=== PATIENT | male | born 2000 | race African-American/Black ===

== ENCOUNTER 2019-08-09 18:08 | Emergency (ER) | payer OTHER, SELFPAY ==
[2019-08-09 18:21] VITALS: BP 133/70; PULSE 65; RESP 16; TEMP 37.3; O2SAT 100
--- NOTE | 2019-08-09 18:22 | ED.MALEGU ---
HPI - Male Genitourinary General Chief complaint: Urogenital-Male Stated complaint: Possible UTI Time Seen by Provider: 08/09/19 18:22 Source: patient and RN notes reviewed History of Present Illness HPI Narrative: Patient is a 18-year-old male that presents the urgent care with complaints of burning with urination for 2 days. Patient states that he has been sitting in a car for 6 hours for several days driving. Patient also reports of only drinking soda. Patient denies of any fever, nausea, vomiting, abdominal pain, low back pain. Patient also reports of a clear discharge without odor. Patient states that his partner does not know if she may carry an STD . Patient states he has had chlamydia in the past and this does not feel like however he is unsure why he is having the discharge and pain with urination. Patient denies of any blood in the urine. No other acute complaints. No acute distress noted. Patient read the plan of care. Related Data Allergies Allergy/AdvReac Type Severity Reaction Status Date / Time No Known Allergies Allergy Verified 08/09/19 18:31 Review of Systems Review of Systems: Narrative: CONSTITUTIONAL: Denies fever, chills, or sweats. EYES: Denies visual changes, redness, or discharge. ENT: Denies rhinorrhea, congestion, sore throat, or otalgia. CARDIOVASCULAR: Denies chest pain, palpitations, or edema. RESPIRATORY: Denies cough or dyspnea. GASTROINTESTINAL: Denies abdominal pain, nausea, vomiting, or diarrhea. GENITOURINARY: Reports of dysuria and clear penile discharge SKIN: Denies rash or itching. MUSCULOSKELETAL: Denies back pain, joint pain, or myalgia. NEUROLOGIC: Denies headache, numbness, or weakness. All other systems reviewed are negative, except as documented in HPI. [facility] Social History Social History Gender identity (if verbalized by the patient): Male Comments At the time of my signature, I reviewed and agree with the nursing past medical, surgical, social, and family history. There is no relevant family history pertinent to the patient complaint. Exam Narrative: Exam Narrative: GENERAL: This is a well-nourished, well-developed patient, in no apparent distress. HEAD: normocephalic, atraumatic. EYES: PERRL. Sclera clear/white. Vision is grossly intact. EARS: External ears normal NOSE: External nose normal with no obvious nasal discharge THROAT: Mucous membranes moist NECK: Neck supple CARDIOVASCULAR: Regular rate and rhythm without murmurs, gallops, or rubs. RESPIRATORY: Clear to auscultation. Breath sounds equal bilaterally. No wheezes, rales, or rhonchi. GASTROINTESTINAL: Abdomen soft, non-tender, nondistended. SKIN: warm, intact with no suspicious lesions or rash, good texture and turgor. NEURO: awake, alert, and oriented to person, place and time. There were no obvious focal neurologic abnormalities. EXTREMITIES: No clubbing, cyanosis, or edema. BACK: Negative bilateral CVA tenderness Course Vital Signs Vital signs: Vital Signs Temperature 99.2 F 08/09/19 18:21 Pulse Rate 65 08/09/19 18:21 Respiratory Rate 16 08/09/19 18:21 Blood Pressure 133/70 08/09/19 18:21 Pulse Oximetry 100 08/09/19 18:21 Temperature 99.2 F 08/09/19 18:21 Pulse Rate 65 08/09/19 18:21 Respiratory Rate 16 08/09/19 18:21 Blood Pressure 133/70 08/09/19 18:21 Pulse Oximetry 100 08/09/19 18:21 Reviewed MDM - Male Genitourinary MDM Narrative Medical decision making narrative: Reviewed lab results with the patient. He is aware that urine analysis was not indicative of a urinary tract infection. Will treat patient for chlamydia per his request and due to symptoms. We will call him within 3 days to 1 week with STD results. If you do not hear within 1 week you may call the facility. If you develop any increase in pain with urination associated with abdominal pain, nausea, vomiting, fever?go to the emergency room. Abstain from sex for 14 days if the test is positiv
[2019-08-09] MEDS: AZITHROMYCIN 250 MG TABLET 1000 MG PO (18:47)
== END 2019-08-09 19:09 | disposition home or self-care (01) ==
PROVIDERS: Emergency Provider Nurse Practitioner Family; PCP Pediatrics
DX: R30.0 Dysuria (principal); Z72.51 High risk heterosexual behavior
CPT/HCPCS: 81003; 87491; 87591; 99203; A9270; G0463

== ENCOUNTER 2019-08-13 12:09 | Emergency (ER) | payer OTHER, SELFPAY ==
[2019-08-13 12:20] VITALS: BP 138/78; PULSE 60; RESP 16; TEMP 36.8; O2SAT 99
--- NOTE | 2019-08-13 12:35 | ED.GENADULT ---
HPI - General Adult General Chief complaint: Urogenital-Male Stated complaint: Std Time Seen by Provider: 08/13/19 12:36 Source: patient and RN notes reviewed Mode of arrival: ambulatory Limitations: no limitations History of Present Illness HPI narrative: 18-year-old -[place] male presents with complaints of needing to be treated for his previous test results. Luis was recently at the Urgent Care and tested for STIs and treated for Chlamydia only. Luis says his sexual partner called him today and said she was positive for Chlamydia and Gonorrhea he then contacted the facility. Denies further dysuria (burning, urgency and frequency). Denies fever or chills. Denies diarrhea, nausea, vomiting, and abdominal pain. Tolerating po intake well. No significant penile pain. No penile discharge. Concern for STIs due to history of recently had unprotected intercourse and testing positive for GC. Denies unprotected intercourse with multiple partners. No flank pain. No exacerbating factors. Denies hematuria or unusual penile bleeding. Tolerating liquids well. Remains active. Some parts of this dictation were generated by voice recognition software and may contain typographical and/or grammatical inaccuracies. Related Data Home Medications Medication Instructions Recorded Confirmed No Home Medications 08/13/19 08/13/19 Allergies Allergy/AdvReac Type Severity Reaction Status Date / Time No Known Allergies Allergy Verified 08/13/19 12:24 Review of Systems Review of Systems: Narrative: CONSTITUTIONAL: Denies fever, chills, sweats. EYES: Denies visual changes, redness, discharge. ENT: Denies rhinorrhea, congestion, sore throat, otalgia. CARDIOVASCULAR: Denies chest pain, palpitations, edema. RESPIRATORY: Denies dyspnea, wheezing, cough GASTROINTESTINAL: Denies abdominal pain, nausea, vomiting, diarrhea. GENITOURINARY: Denies dysuria, hematuria, genital discharge and itching. Complains of positive GC result and needing treatment. SKIN: Denies rash or itching. MUSCULOSKELETAL: Denies acute back pain, joint pain, or myalgia. NEUROLOGIC: Denies numbness or focal weakness. PSYCHIATRIC: Denies anxiety or depression. All systems reviewed & are unremarkable except as noted in HPI and below. [facility] Past Medical History Medical History (Updated 08/14/19 @ 00:00 by Gustavo Awad) No significant past medical history Surgical History Surgical History (Updated 08/13/19 @ 12:49 by RONALD Braden) No significant past surgical history Family History Family History (Updated 08/13/19 @ 12:49 by RONALD Braden) Mother Asthma Seizures Social History Social History (Updated 08/13/19 @ 12:50 by RONALD Braden) Smoking status: Never smoker Tobacco type: cigarettes Second hand tobacco smoke exposure: No Alcohol intake: former Alcohol use details: Rarely Substance use: current Substance use type: marijuana Living arrangements: with family Occupation/Education: unemployed Gender identity (if verbalized by the patient): Male Comments At time of signature, agree with nurse past medical, surgical, social, and family history. There is no relevant family history pertinent to the presenting complaint. Exam Narrative: Exam Narrative: GENERAL: This is a well-nourished, well-developed patient, in no apparent distress. Talks in full sentences and ambulates with steady gait without dyspnea. HEAD: normocephalic, atraumatic. EYES: PERRL. Sclera clear/white. Vision is grossly intact. THROAT: Mucous membranes moist, posterior pharynx clear. No erythema or drainage. NECK: Neck supple, non-tender without lymphadenopathy, masses or thyromegaly. CARDIOVASCULAR: Regular rate and rhythm without murmurs, gallops, or rubs. RESPIRATORY: Clear to auscultation. Breath sounds equal bilaterally. No wheezes, rales, or rhonchi. GASTROINTESTINAL: Abdomen soft, non-tender, nondistended.
[2019-08-13] MEDS: cefTRIAXone 250 MG VIAL IM (12:49)
[2019-08-13] MEDS: LIDOCAINE HCL 1% LOCAL INJ 20 ML VIAL INFILTRATE (12:49)
== END 2019-08-13 13:09 | disposition home or self-care (01) ==
PROVIDERS: Emergency Provider Nurse Practitioner Family
DX: A64 Unspecified sexually transmitted disease (principal)
CPT/HCPCS: 96372; 99213; G0463; J0696

== ENCOUNTER 2020-03-18 09:16 | Emergency (ER) | payer OTHER, SELFPAY ==
[2020-03-18 09:28] VITALS: BP 126/66; PULSE 65; RESP 16; TEMP 37.2; O2SAT 99
--- NOTE | 2020-03-18 09:30 | ED.GENADULT ---
HPI - General Adult General Chief complaint: Urogenital-Male Stated complaint: possible uti Time Seen by Provider: 03/18/20 09:30 Source: patient Mode of arrival: ambulatory Limitations: no limitations History of Present Illness HPI narrative: 19-year-old male patient presents to the [facility] with request for an STD check. Patient states he had unprotected sex about a week or 2 ago with a female. Patient states now he is having some discomfort with urination at times. Denies any fevers, body aches or chills. Denies any abdominal pain. Denies any penile discharge. Denies any lesions to the penile area. Patient states he has had chlamydia before in the past. Patient states he has had these similar symptoms. Patient states he only has sex with women. Related Data Allergies Allergy/AdvReac Type Severity Reaction Status Date / Time No Known Allergies Allergy Verified 03/18/20 09:39 Review of Systems Review of Systems: Narrative: CONSTITUTIONAL: Denies fever, chills, or sweats. EYES: Denies visual changes, redness, or discharge. ENT: Denies rhinorrhea, congestion, sore throat, or otalgia. CARDIOVASCULAR: Denies chest pain, palpitations, or edema. RESPIRATORY: Denies cough or dyspnea. GASTROINTESTINAL: Denies abdominal pain, nausea, vomiting, or diarrhea. GENITOURINARY: Positive dysuria, denies hematuria. Denies any penile discharge SKIN: Denies rash or itching. MUSCULOSKELETAL: Denies back pain, joint pain, or myalgia. NEUROLOGIC: Denies headache, numbness, or weakness. PSYCHIATRIC: Denies anxiety or depression. [facility] Past Medical History Medical History No significant past medical history Surgical History Surgical History No significant past surgical history Family History Family History Mother Asthma Seizures Social History Social History Smoking status: Never smoker Tobacco type: cigarettes Second hand tobacco smoke exposure: No Alcohol intake: former Substance use: current Substance use type: marijuana Gender identity (if verbalized by the patient): Male Sexual Orientation (if Verbalized by the Patient): Straight or Heterosexual Comments At the time of my signature I agree with nursing past medical history, surgical, social, and family history. There is no relevant family history pertinent to the presenting complaint. Exam Narrative: Exam Narrative: GENERAL: Well-appearing, well-nourished, and in no acute distress. HEAD: Normocephalic, atraumatic. EYES: PERRLA and EOMI. ENT: Nares clear, no rhinorrhea or epistaxis. Mucous membranes moist. NECK: Supple. No lymphadenopathy CHEST: Clear to auscultation. No respiratory distress. HEART: Regular rate and rhythm. No murmur heard. Normal peripheral pulses. ABDOMEN: Soft, nontender, nondistended, normal active bowel sounds. No CVA tenderness on percussion. EXTREMITIES: Normal range of motion. No edema. SKIN: Warm, dry, no rash. NEURO: No focal deficits. Alert and oriented x3. Course Vital Signs Vital signs: Vital Signs Temperature 37.2 C 03/18/20 09:28 Pulse Rate 65 03/18/20 09:28 Respiratory Rate 16 03/18/20 09:28 Blood Pressure 126/66 03/18/20 09:28 Pulse Oximetry 99 03/18/20 09:28 Temperature 37.2 C 03/18/20 09:28 Pulse Rate 65 03/18/20 09:28 Respiratory Rate 16 03/18/20 09:28 Blood Pressure 126/66 03/18/20 09:28 Pulse Oximetry 99 03/18/20 09:28 Vital signs reviewed. Medical Decision Making Differential Diagnosis Differential Diagnosis: Differential diagnosis: Gonorrhea, chlamydia, Trichomonas, bacterial vaginosis, herpes, HIV, yeast infection, urinary tract infection. Uncomplicated lower UTI, uncomplicated UTI, polynephritis, penile trauma,balanoposthitis, phimosis, paraphimo
[2020-03-18] MEDS: AZITHROMYCIN 250 MG TABLET 1000 MG PO (09:49)
[2020-03-18] MEDS: cefTRIAXone 250 MG VIAL IM (09:50)
[2020-03-18] MEDS: LIDOCAINE HCL 1% LOCAL INJ 20 ML VIAL IM (09:51)
== END 2020-03-18 10:05 | disposition home or self-care (01) ==
PROVIDERS: Emergency Provider Nurse Practitioner Family
DX: Z20.2 Contact with and (suspected) exposure to infections with a predominantly sexual mode of transmission (principal)
CPT/HCPCS: 81003; 87491; 87591; 87661; 96372; 99213; A9270; G0463; J0696